=== PATIENT | female | born 1990 | race Asian ===

== ENCOUNTER 2016-07-19 11:03 | Outpatient (CLI) | payer MEDICAID ==
[~2016-07-19] VITALS: Ht 149.9 cm; Wt 61.6 kg
[2016-07-19 11:14] VITALS: BP 106/55; PULSE 82; RESP 18; Ht 149.9 cm; Wt 61.6 kg
--- NOTE | 2016-07-19 11:51 | RADRPT ---
PROCEDURE: Biophysical profile CLINICAL INDICATION: distress, large placental baker. TECHNIQUE: Color and pedroza-scale ultrasound images of an intrauterine gestation were obtained. COMPARISON: None FINDINGS: A single live intrauterine gestation is identified in cephalic position with an estimated hear t rate of 152 beats per minute. The placenta is located posteriorly and has a grade of 2. Potential placental baker that demonstrates internal blood flow is identified in the posterior aspect of the p lacenta. The cervix is obscured by head shadows. MATIAS is 12.8 cm. movement 2/2. tone 2/2. breathing movement 2/2. Qualitative AFV 2/2 Total biophysical profile 01/11 IMPRESSION: 01/11 biophysical profile. RPTAT: AA .Osmany Denny MD, Date Time Electronically viewed and signed by .Osmany Denny MD, MD on 07/19/2016 11:50 .P/
--- NOTE | 2016-07-19 17:23 | PN ---
DATE: ____ The patient is a ____ -year-old, 32 weeks ____. No complaints. The patient is doing well. All lab s, ultrasound within normal limits. The patient discharged home. Follow up with PROPERTY CONTROLLER within 2 we eks. Dictated By: LALA SOTO MD /NTS Conf#: [id number] DID#: [id number]
== END 2016-07-19 14:00 | disposition home or self-care (01) ==
LOC: OBT 11:03 → L-D 11:04 → OBT 14:00
PROVIDERS: ATTEND Obstetrics & Gynecology
DX: O43.893 Other placental disorders, third trimester (principal); O77.9 Labor and delivery complicated by fetal stress, unspecified; Z3A.32 32 weeks gestation of pregnancy
CPT/HCPCS: 76818; Z7500; G0463

== ENCOUNTER 2016-08-19 12:51 | Outpatient (CLI) | payer MEDICAID ==
[~2016-08-19] VITALS: Ht 149.9 cm; Wt 63.3 kg
[2016-08-19 13:09] VITALS: Ht 149.9 cm; Wt 63.3 kg
[2016-08-19 13:10] VITALS: BP 114/68; PULSE 19; RESP 19
[2016-08-19] MEDS ORDERED: PRENAT PO (13:12)
--- NOTE | 2016-08-19 13:49 | RADRPT ---
PROCEDURE: US OB. CLINICAL INDICATION: Spotting TECHNIQUE: Multiple sonographic images of the pelvis were obtained. The images were reviewed on a PACS workstation. COMPARISON: 07/19/2016 FINDINGS: There is a single live intrauterine . cardiac activity is identified at a rate of 15 4 beats per minute. presentation is cephalic. Placenta is posterior grade 1 to II. Biophysical profile score is as follows: Breathing 2 Movements 2 Tone 2 Fluid volume 2 Amniotic fluid index = 10.67 cm Total biophysical profile score = 8/8 IMPRESSION: Biophysical profile score = 8/8 RPTAT: HH .Lyle Sainz MD, MD Date Time Electronically viewed and signed by .Lyle Sainz MD, on 08/19/2016 13:48 .W/
--- NOTE | 2016-08-19 14:09 | TRIAGE ---
OB Triage Datetime Report Generated by CPN: 08/19/2016 14:08 Datetime: 08/19/2016 13:59 Vaginal Exam Dilatation (cms): 0.0 Effacement (%): 0 Station: -3 Exam By: YUNI,RN Vaginal Bleeding: None Cervix, Consistency: Firm Cervix, Position: Posterior Datetime: 08/19/2016 13:30 Maternal Assessment Level of Consciousness: Fully Conscious DTR's/Clonus: DTRs 1+ Headache: Denies Blurred Vision: No Respiratory Effort: Unlabored Breath Sounds, Left: Clear and Equal Breath Sounds, Right: Clear and Equal Nausea/Vomiting: Denies RUQ Epigastric Pain: Denies Facial Edema: 1+ Labor Evaluation Frequency: NONE Quality: Mild Resting Tone [place]: Relaxed Heart Rate FHR Baseline Rate: 140 Monitor Mode: External US Variability: Moderate 6-25 bpm Accelerations: 15X15 Decelerations: None Category: Category I Pain Assessment Pain Presence: None/Denies Pain Type: N/A Membrane Status: Intact Datetime: 08/19/2016 13:14 Monitor Mode: External US Datetime: 08/19/2016 13:08 Assessment Type: Triage Maternal Assessment Level of Consciousness: Fully Conscious DTR's/Clonus: DTRs 2+; No Clonus Headache: Denies Blurred Vision: No Respiratory Effort: Unlabored; Regular Rhythm; Equal Expansion Breath Sounds, Left: Clear and Equal Breath Sounds, Right: Clear and Equal Nausea/Vomiting: Denies RUQ Epigastric Pain: Denies Lower Extremities Edema: None Degree: None Upper Extremities Edema: None Degree: None Facial Edema: None Fall Risk Assessment History of Falling: (0) No Secondary Diagnosis: (0) No Ambulatory Aid: (0) Bedrest/Nurse Assist IV Therapy: (0) No Gait: (0) Normal/Bedrest/Immobile Mental Status: (0) Oriented to Own Ability Fall Score: 0 Fall Risk Score Definition: No Risk: No action required Datetime: 08/19/2016 12:50 Time of Arrival: 08/19/2016 12:50 EGA: 36.4 Arrived By: Ambulatory Arrived From: Home Chief Complaint: PT CAME IN C/O OF SPOTTING X 1 THIS AM. STATES MOVEMENT AND DENIES ANY ABD TRAUMA OR HAVING SEX Movement: Present Contractions: Denies/Absent Rupture of Membranes: Denies Vaginal Discharge: Denies Recent Sexual Intercouse: Denies Abdominal Trauma: Not Applicable Additional Patient Complaints: NONE Initial Plan: MONITOR, PLACENTA LOCATION AND BPP Datetime: 07/19/2016 13:05 Labor Evaluation Frequency: OCCAS Monitor Mode: External Duration (sec)2399: 40-60 Quality: Mild Pattern: Normal: <= 5 Contractions in 10 Minutes Resting Tone [place]: Relaxed Heart Rate FHR Baseline Rate: 135 Monitor Mode: External US FHR Baseline Changes: No Baseline Change Variability: Moderate 6-25 bpm Accelerations: 15X15 Decelerations: None Category: Category I Datetime: 07/19/2016 12:05 Labor Evaluation Frequency: OCCAS Monitor Mode: External Duration (sec)2399: 40-60 Quality: Mild Pattern: Normal: <= 5 Contractions in 10 Minutes Resting Tone [place]: Relaxed Heart Rate FHR Baseline Rate: 135 Monitor Mode: External US Variability: Moderate 6-25 bpm Accelerations: 15X15 Decelerations: None Category: Category I Datetime: 07/19/2016 11:32 Assessment Type: Admission Assessment Maternal Assessment Level of Consciousness: Fully Conscious DTR's/Clonus: DTRs 2+; No Clonus Headache: Denies Blurred Vision: No Respiratory Effort: Unlabored; Regular Rhythm; Equal Expansion Breath Sounds, Left: Clear and Equal Breath Sounds, Right: Clear and Equal Nausea/Vomiting: Denies RUQ Epigastric Pain: Denies Lower Extremities Edema: None Degree: None Upper Extremities Edema: None Degree: None Facial Edema: None Fall Risk Assessment History of Falling: (0) No Secondary Diagnosis: (0) No Ambulatory Aid: (0) Bedrest/Nurse Assist IV Therapy: (0) No Gait: (0) Normal/Bedrest/Immobile Mental Status: (0) Oriented to Own Ability Fall Score: 0 Fall Risk Score Definition: No Risk: No action required Datetime: 07/19/2016 11:31 EGA: 32.1 Datetime: 07/19/2016 11:30 Time of Arrival: 07/19/2016 11:03 Arrived By: Ambulatory Arrived From: Dr. Gutiérrez Chief Complaint: LARGE PLACENTAL TELLEZ Movement: Present Contractions: Denies/Absent Rupture of Membranes: Denies Vaginal Bleeding: None Vaginal Discharge: Denies Recent Sexual Intercouse: Denies Abdominal Trauma: Not Applicable Patient Complaints: Other Time Provider Notified: 07/19/2016 13:15 Provider Notified: DR MICHAELS Initial Plan: NST, BPP WITH MATIAS
--- NOTE | 2016-11-03 09:08 | QN ---
Documentation Comment vaginal bleeding IUP 36w SHANAE MICHAELS MD November 03, 2016 09:08
== END 2016-08-19 14:04 | disposition home or self-care (01) ==
LOC: OBT 12:51 → L-D 13:12 → OBT 14:04
PROVIDERS: ATTEND Obstetrics & Gynecology
DX: O46.93 Antepartum hemorrhage, unspecified, third trimester (principal); Z3A.36 36 weeks gestation of pregnancy
CPT/HCPCS: 76818; Z7500; G0463

== ENCOUNTER 2016-09-07 15:05 | Inpatient (IN) | payer MEDICAID ==
--- NOTE | 2016-08-19 14:31 | CONS ---
Date/Time of Note Date/Time of Note DATE: 08/19/16 TIME: 14:23 Consultation Date/Type/Reason Admit Date/Time August 19, 2016 OB triage consult Initial Consult Date This patient is a 26 years old 2 para 0 1 with EDC of September 12, 2016 which makes her 36 weeks and 4 days. She came to the OB triage area complaining of vaginal spotting last night. She denies intercourse last night or today. Her course was uncomplicated so far. One examining her, she is a young patient in no acute distress. Her ear nose throat are normal. Neck is normal no neck vein distention no thyromegaly no lymph node enlargement anywhere in her body Her chest is clear, heart normal sinus rhythm Abdomen is soft no contractions heart tone is normal with good variability occasional acceleration no deceleration . Her vital signs were normal blood pressure 114/68 pulse 103 respirations 19 and temperature 90 On pelvic examination the cervix was closed , thick and -3 station, no evidence of active bleeding Her biophysical profile was 8 out of 8 amniotic fluid index was 10.7 cm On ultrasound the placenta was posterior with no evidence of previa or low-lying 24 HR Interval Summary Constitutional: No chills, No diaphoresis, No disoriented, No febrile, No improved, No no complaints, No other, No poor po, No requiring IVF, No requiring O2 Detailed Summary Eyes: No discharge, No no complaints, No other, No pain, No redness, No visual change ENT: No bleeding, No congestion, No discharge, No dysphagia, No no complaints, No other, No pain, No sore throat Respiratory: No cough, No no complaints, No other, No pain, No pleuritic pain, No shortness of breath, No sputum, No wheezing Cardiovascular: No chest pain, No edema, No lightheadedness, No no complaints, No orthopenea, No other, No palpitations, No paroxysmal nocturnal dyspnea Gastrointestinal: other (As I mentioned on pelvic examination cervix was closed no head at -3), No blood, No constipation, No decreased appetite, No diarrhea, No flatus, No nausea, No no complaints, No pain, No passing stool, No vomiting Genitourinary: No bleeding, No discharge, No dysuria, No flank pain, No hematuria, No no complaints, No other Musculoskeletal: No back pain, No bone/joint pain, No neck pain, No no complaints, No other, No restricted range of motion, No swelling Skin: No bruising, No erythema, No laceration, No no complaints, No other, No pruritis, No rash, No skin lesions Neurologic: No confusion, No dizziness, No focal-weakness, No headache, No no complaints, No other, No seizure, No syncope Endocrine: No dry skin, No no complaints, No other, No polydypsia, No polyuria , No temp intolerance Lymphatic: No adenopathy, No lymphadema, No no complaints, No other, No tender nodes ED GORDON MD Aug 19, 2016 14:31
[~2016-09-07] VITALS: Ht 152.4 cm; Wt 64.3 kg
[~2016-09-07 15:05] MED LIST: PRENAT PO
[2016-09-07 15:15] VITALS: Ht 152.4 cm; Wt 64.3 kg
[2016-09-07 15:16] VITALS: BP 121/74; PULSE 91; RESP 18
[2016-09-07] MEDS ORDERED: IRON1TAB78 PO (15:18)
[2016-09-07] MEDS ORDERED: CALC-143 PO (15:19)
--- NOTE | 2016-09-07 16:25 | RADRPT ---
PROCEDURE: US OB. CLINICAL INDICATION: Low MATIAS , pain TECHNIQUE: Transabdominal views of the pelvis are available for review. COMPARISON: 08/19/2016 FINDINGS: There is a single intrauterine gestation in a vertex position. The heart rate is present at 159 bpm. The placenta is right lateral. The MATIAS measures 9.8 cm. RPTAT: AA IMPRESSION: Normal MATIAS. .Chidi Burris MD, MD Date Time Electronically viewed and signed by .Chidi Burris MD, on 09/07/2016 16:24 .S/
--- NOTE | 2016-09-07 16:27 | TRIAGE ---
OB Triage Datetime Report Generated by CPN: 09/07/2016 16:27 Datetime: 09/07/2016 16:18 Pain Assessment Pain Scale: 5 Pain Presence: Intermittent Pain Type: Contraction Pain Location: Abdomen Pain Relief Measures: Comfort Measures Datetime: 09/07/2016 15:58 Labor Evaluation Frequency: 3-6 Monitor Mode: External Duration (sec)2399: 60-120 Pattern: Normal: <= 5 Contractions in 10 Minutes Resting Tone [place]: Relaxed Heart Rate FHR Baseline Rate: 135 Monitor Mode: External US Variability: Moderate 6-25 bpm Accelerations: 15X15 Decelerations: None Category: Category I Datetime: 09/07/2016 15:42 Monitor Mode: External US Datetime: 09/07/2016 15:21 Assessment Type: Admission Assessment Maternal Assessment Level of Consciousness: Fully Conscious DTR's/Clonus: DTRs 2+; No Clonus Headache: Denies Blurred Vision: No Respiratory Effort: Unlabored; Regular Rhythm; Equal Expansion Breath Sounds, Left: Clear and Equal Breath Sounds, Right: Clear and Equal Nausea/Vomiting: Denies RUQ Epigastric Pain: Denies Lower Extremities Edema: None Degree: None Upper Extremities Edema: None Degree: None Facial Edema: None Fall Risk Assessment History of Falling: (0) No Secondary Diagnosis: (0) No Ambulatory Aid: (0) Bedrest/Nurse Assist IV Therapy: (0) No Gait: (0) Normal/Bedrest/Immobile Mental Status: (0) Oriented to Own Ability Fall Score: 0 Fall Risk Score Definition: No Risk: No action required Datetime: 09/07/2016 15:20 Time of Arrival: 09/07/2016 15:04 EGA: 39.2 Arrived By: Ambulatory Arrived From: Dr. Gutiérrez Chief Complaint: PT. SENT FROM CLINIC TO DO NST, MATIAS, AND MONITOR UC'S. Movement: Present Contractions: Denies/Absent Rupture of Membranes: Denies Vaginal Bleeding: None Vaginal Discharge: Denies Recent Sexual Intercouse: Denies Abdominal Trauma: Not Applicable Patient Complaints: None Time Provider Notified: 09/07/2016 16:20 Provider Notified: DR. MICHAELS Initial Plan: TOCO/ US Datetime: 09/07/2016 15:10 Resting Tone [place]: Relaxed Monitor Mode: External US Pain Presence: None/Denies Datetime: 08/19/2016 13:08 Fall Score: 0 Fall Risk Score Definition: No Risk: No action required Datetime: 08/19/2016 12:50 EGA: 36.4 Datetime: 07/19/2016 11:32 Fall Score: 0 Fall Risk Score Definition: No Risk: No action required Datetime: 07/19/2016 11:31 EGA: 32.1
[2016-09-07] MEDS ORDERED: MISOPROSTOL 200 MCG TAB PR PRN (17:00)
[2016-09-07] MEDS ORDERED: CARBOPROST 250 MCG INJ IM PRN (17:00)
[2016-09-07] MEDS ORDERED: OXYTOCIN 30 UNITS/LR 500 ML IV PRN (17:00)
[2016-09-07] MEDS ORDERED: METHYLERGONOVINE 0.2 MG INJ IM PRN (17:00)
[2016-09-07] MEDS ORDERED: IBUPROFEN 600 MG TAB PO PRN (17:00)
[2016-09-07] MEDS ORDERED: LIDOCAINE 1% (MPF) 30 ML INJ INJ PRN (17:00)
[2016-09-07] MEDS ORDERED: OXYTOCIN 30 UNITS/LR 500 ML IV SCH ×3 (17:00)
[2016-09-07] MEDS ORDERED: BUTORPHANOL 2 MG INJ IV PRN (17:00)
[2016-09-07] MEDS: LACTATED RINGER'S 1,000 ML IV SCH ×2 (17:30→23:48)
[2016-09-07 17:36] LABS: ADD SCAN DIFF NO
[2016-09-07 17:38] LABS: BASOPHILS % 0.2 % (0.0-2.0); EOSINOPHILS % 0.3 % (0.0-7.0); HEMATOCRIT 34.1 % (37.0-47.0); HEMOGLOBIN 10.3 g/dl (12.0-16.0); LYMPHOCYTES # 1.9 10^3/ul (0.8-2.9); LYMPHOCYTES % 19.1 % (15.0-51.0); MEAN CORPUSCULAR HEMOGLOBIN 21.6 pg (29.0-33.0); MEAN CORPUSCULAR HGB CONC 30.2 g/dl (32.0-37.0); MEAN CORPUSCULAR VOLUME 71.5 fl (82.0-101.0); MEAN PLATELET VOLUME 9.4 fl (7.4-10.4); MONOCYTE # 0.7 10^3/ul (0.3-0.9); MONOCYTES % 6.5 % (0.0-11.0); NEUTROPHIL # 7.2 10^3/ul (1.6-7.5); NEUTROPHILS % 72.1 % (39.0-77.0); NUCLEATED RED BLOOD CELLS% 0.3 /100WBC (0.0-0.0); PLATELET COUNT 244 10^3/UL (140-415); RED BLOOD COUNT 4.77 10^6/ul (4.20-5.40); RED CELL DISTRIBUTION WIDTH 16.3 % (11.5-14.5)
[2016-09-07 17:48] LABS: INR 0.91; PROTIME 12.3 Sec (12.2-14.2)
[2016-09-07 17:49] LABS: PARTIAL THROMBOPLASTIN TIME 26.8 Sec (25.0-35.0)
[2016-09-08] VITALS (7 sets, daily range): BP systolic 99–114; BP diastolic 56–64; PULSE 84–103; RESP 18–20
[2016-09-08] MEDS ORDERED: CITRIC ACID/NA CITRATE 30 ML CUP ONE (00:38)
[2016-09-08] MEDS ORDERED: ONDANSETRON 4 MG INJ ONE (00:38)
[2016-09-08] MEDS ORDERED: KETOROLAC 30 MG INJ IV PRN (01:00)
[2016-09-08] MEDS ORDERED: morphine 2 MG INJ IV PRN ×2 (01:00)
[2016-09-08] MEDS ORDERED: ONDANSETRON 4 MG INJ IV ONE (01:00)
[2016-09-08] MEDS ORDERED: DIPHENHYDRAMINE 50 MG INJ IV PRN ×4 (01:00→16:00)
[2016-09-08] MEDS ORDERED: FENTAnyl 2MCG/ML-ROPIV 0.2% 100 ML BAG EPI SCH (01:00)
[2016-09-08] MEDS ORDERED: PROCHLORPERAZINE 10 MG INJ IV PRN ×2 (01:00→11:30)
[2016-09-08] MEDS ORDERED: NALOXONE (0.4 MG/ML) INJ IV PRN ×2 (01:00→11:30)
[2016-09-08] MEDS ORDERED: ONDANSETRON 4 MG INJ IV PRN ×4 (01:00→16:00)
[2016-09-08] MEDS ORDERED: CITRIC ACID/NA CITRATE 30 ML CUP PO ONE (01:00)
[2016-09-08] MEDS: LACTATED RINGER'S 1,000 ML IV PRN ×2 (01:57→02:15)
[2016-09-08] MEDS ORDERED: TERBUTALINE 1 ML ONE (04:27)
[2016-09-08] MEDS: LACTATED RINGER'S 1,000 ML IV SCH ×3 (04:45→17:21)
[2016-09-08] MEDS ORDERED: AMPICILLIN 2 GM/NS (PMX) 100 ML IV ONE (07:41)
[2016-09-08] MEDS ORDERED: AMPICILLIN 2 GM/NS (PMX) 100 ML ONE (07:42)
[2016-09-08] MEDS ORDERED: ACETAMINOPHEN 325 MG TAB PO ONE (10:00)
[2016-09-08] MEDS ORDERED: CEFAZOLIN 2 GM/50 ML (PMX) 50 ML IVPB SCH ×2 (10:30→14:00)
[2016-09-08] MEDS ORDERED: LIDOCAINE 2%/EPI 30 ML INJ ONE (11:01)
[2016-09-08] MEDS ORDERED: PHENYLephrine (100 MCG/ML) 5ML SYG ONE ×4 (11:05→11:54)
[2016-09-08] MEDS ORDERED: morphine SULFATE/PF (10 MG/10 ML) INJ ONE (11:12)
[2016-09-08] MEDS ORDERED: EPHEDrine SULFATE 50 MG/5 ML SYG ONE (11:23)
[2016-09-08] MEDS ORDERED: HYDROmorphONE 1 MG/ML SYG IV PRN ×2 (11:30)
[2016-09-08] MEDS ORDERED: FENTAnyl 50 MCG/ML VIAL IV PRN (11:30)
[2016-09-08] MEDS ORDERED: MEPERIDINE 25 MG INJ IV PRN (11:30)
[2016-09-08] MEDS ORDERED: HYDROmorphONE (0.2 MG/ML) 10ML SYG IV PRN ×2 (11:30)
[2016-09-08] MEDS ORDERED: METOCLOPRAMIDE 10 MG INJ IV PRN (11:30)
--- NOTE | 2016-09-08 12:32 | HP ---
Date/Time of Note Date/Time of Note DATE: 09/08/16 TIME: 12:22 OB - History Hx of Present Free Text/Dictation 26y.o A1 at 39w2d for nst and borderlin matthew ve cervix 2cm still thick 2cm posterior admitted for augmentation with pitocin and ARM done clear allowed to continue labor and reached cervix complete lot with caput maternal fever 102 ampicillin 2gnm given continue to push , no futher descentwith labial edema fever mincrease 103 primary section was chosen to be m ode of delivery for failed descent and maternal fever Estimated Due Date: Sep 12, 2016 : 2 Para: 0 Spontaneous : 1 Therapeutic : 0 Care: Good Care Ultrasounds: Normal mid trimester US Obstetrical Complications: None Past Family/Social History * Past Medical, Surgical, Family and Obstetric Histories reviewed from chart. Blood Type: B+ Rubella: immune RPR/VDRL: Negative GBS Status: Negative HBsAG: Negative OB Admission Exam Vital Signs Vital Signs Vital Signs Date Time Temp Pulse Resp B/P Pulse Ox O2 Delivery O2 Flow Rate FiO2 09/07/16 15:16 98.5 91 18 121/74 Room Air Physical Exam HEENT: WNL Heart: Rhythm Normal Lungs: Clear, Equal Abdomen: WNL Extremities: Normal Reflexes: Normal Cervical Dilatation: 10cm Effacement: 100% Station: -1 Membranes: Ruptured Amniotic Fluid: Clear Heart Rate: 150's Accelerations: Accelerations Present Decelerations: No Decelerations Varibility: Moderate Contractions on Admission: < 5 Minutes Apart Intensity: Moderate Last 72 hours Lab Results CBC & BMP 09/07/16 17:30 OB Assessment/Plan Reason for admission: other (MATERNAL FEVER FAILED DESCENT) Other Assessment: IUP 39W3D Plan: Section SHANAE MICHAELS MD Sep 08, 2016 12:32
--- NOTE | 2016-09-08 13:16 | OPR ---
DATE OF OPERATION: 09/08/2016 PREOPERATIVE DIAGNOSIS: 39 weeks 3 days with failure to descend and maternal fever. POSTOPERATIVE DIAGNOSIS: 39 weeks 3 days with failure to descend and maternal fever. Del ivered normal male , 6 pounds 6 ounces, thick meconium-stained amniotic fluid, no foul odor, A pgar 8 and 9. OPERATION PROCEDURE: Primary low transverse section. SURGEON: Sujit Moreno MD ANESTHESIA: Epidural. ANESTHESIOLOGIST: Liborio Bradford MD ESTIMATED BLOOD LOSS: Approximately 600 mL. PROCEDURE: Under appropriate induction of epidural anesthesia, the patient was placed in the supine position. Abdominal wall was prepped and draped in usual aseptic manner. A Pfannenstiel incision was made. The incision was carried down through the subcutaneous tissue to the anterior rectus fasc ia which was incised transversely length of the incision. Fascial flap was created by blunt and sha rp dissection with tendinous attachment to rectus muscle split and peritoneal cavity was entered. L ow portion of the uterus was exposed. Bladder blade was introduced. Due to the fetus was way engag ed down and with placement assistant hands, pushed up through the vagina. The incision was way high, incision was carried down layer by layer until we reached the amniotic membrane, which was ruptured. Thick meconium-stained amniotic fluid noted. Normal male infant was born from the left occiput transverse position. Mouth and nose were cleaned and cord was clamped and [facility] Cord blood was obtained. The placenta was removed manually. Cavity was co mpletely explored after the uterus was exteriorized. There was a midline extension, which was separ ately closed up to the proper level, and then uterine incision was closed using #1 chromic catgut in continuous manner on the first layer and second layer using 0 chromic catgut in continuous manner. No bleeder was noted. Vigorous irrigation was done. There was no foul odor. Uterus was relocated into the abdominal cavity. Sponge count taken which was correct and the incisi onal site was rechecked for the bleeder, which was intact. Final sponge count correct. Parietal pe ritoneum was closed using 0 chromic catgut in continuous manner, muscle closed with 0 chromic catgut in continuous manner. Fascia closed with #1 Vicryl in continuous manner in 2 segments. Subcutaneo us tissue irrigated with water. This layer was approximated with 2-0 plain in continuous manner. S kin closed with 3-0 Monocryl in subcuticular manner. Steri-Strips applied. A pressure dressing hansel lied. Estimated blood loss approximately 600 mL. The patient withstood the procedure well and sent to the recovery room in stable condition. Dictated By: SUJIT MENA/RICO Conf#: [id number] DID#: [id number]
[2016-09-08] MEDS ORDERED: CARBOPROST 250 MCG INJ IM PRN (16:00)
[2016-09-08] MEDS ORDERED: ZOLPIDEM 5 MG TAB PO PRN (16:00)
[2016-09-08] MEDS ORDERED: OXYCODONE/ACETAMINOPHEN (5/325) TAB PO PRN ×2 (16:00)
[2016-09-08] MEDS ORDERED: OXYTOCIN 30 UNITS/LR 500 ML IV PRN (16:00)
[2016-09-08] MEDS ORDERED: LANOLIN 7 GM TUBE TOP PRN (16:00)
[2016-09-08] MEDS ORDERED: MISOPROSTOL 200 MCG TAB PR PRN (16:00)
[2016-09-08] MEDS ORDERED: METHYLERGONOVINE 0.2 MG INJ IM PRN (16:00)
[2016-09-08] MEDS: IBUPROFEN 600 MG TAB PO SCH (17:20)
[2016-09-08] MEDS: SENNA/DOCUSATE NA (8.6MG/50MG) TAB PO SCH (21:03)
[2016-09-09] MEDS: LACTATED RINGER'S 1,000 ML IV SCH ×3 (01:11→16:32)
[2016-09-09 03:35] VITALS: BP 91/54; PULSE 107; RESP 20
[2016-09-09] MEDS: KETOROLAC 30 MG INJ IV PRN ×2 (05:31→11:40)
[2016-09-09] MEDS: IBUPROFEN 600 MG TAB PO SCH ×4 (06:00→18:00)
[2016-09-09 07:15] VITALS: BP 105/55; PULSE 100; RESP 20
--- NOTE | 2016-09-09 07:15 | CONS ---
Date/Time of Note Date/Time of Note DATE: 09/09/16 TIME: 07:14 Consultation Date/Type/Reason Admit Date/Time Sep 07, 2016 at 16:20 Initial Consult Date 09/09/16 Type of Consultation: Anesthesiology Reason for Consultation Follow up 24 HR Interval Summary Free Text/Dictation Pt seen and examined at bedside is POD #1 for C/S. Pt had Duramorph neuraxial injection for post op pain management. She states she is currently doing well with no pain/N/V/D/VELASQUEZ/Numbness. Will continue to follow up PRN. Thank you. Constitutional: improved, no complaints Exam/Review of Systems Vital Signs Vitals Vital Signs Date Time Temp Pulse Resp B/P Pulse Ox O2 Delivery O2 Flow Rate FiO2 09/09/16 03:35 98.0 107 20 91/54 09/08/16 20:10 Room Air Intake and Output 09/08/16 09/08/16 09/09/16 15:00 23:00 07:00 Intake Total 3200 ml 750 ml 875 ml Output Total 1270 ml 250 ml 400 ml Balance 1930 ml 500 ml 475 ml Results Result Diagram: 09/07/16 1730 Medications Medications Current Medications Lactated Ringer's (Lr) 1,000 ml @ 125 mls/hr Q8H IV Last administered on 01:11; Admin Dose 125 MLS/HR; Start 09/07/16 at 16:32 Naloxone HCl (Narcan) 0.1 mg Q2M PRN IV FOR RESP RATE 8 OR LESS; Start 09/08/16 at 11:30; Stop 09/09/16 at 11:29 Ketorolac Tromethamine (Toradol) 30 mg Q6H PRN IV PAIN Last administered on 09/09 05:31; Admin Dose 30 MG; Start 09/08/16 at 11:30; Stop 09/09/16 at 11:29 Hydromorphone HCl (Dilaudid) 0.2 mg Q3H PRN IV PAIN LEVEL 1-5; Start 09/08/16 at 11:30; Stop 09/09/16 at 11:29 Hydromorphone HCl (Dilaudid) 0.4 mg Q3H PRN IV PAIN LEVEL 6-10; Start 09/08/16 at 11:30; Stop 09/09/16 at 11:29 Diphenhydramine HCl (Benadryl) 25 mg Q6H PRN IV ITCHING; Start 09/08/16 at 11:30 ; Stop 09/09/16 at 11:29 Ondansetron HCl (Zofran Inj) 4 mg Q6H PRN IV NAUSEA AND/OR VOMITING; Start 09/08 at 11:30; Stop 09/09/16 at 11:29 Prochlorperazine (Compazine Inj) 10 mg ONCE PRN IV NAUSEA AND/OR VOMITING; Start 09/08/16 at 11:30; Stop 09/09/16 at 11:29 Oxycodone/ Acetaminophen (Percocet (5/ 325)) 1 tab Q4H PRN PO PAIN LEVEL 4-6; Start 09/08/16 at 16:00 Oxycodone/ Acetaminophen (Percocet (5/ 325)) 2 tab Q4H PRN PO PAIN LEVEL 7-10; Start 09/08/16 at 16:00 Ibuprofen (Motrin) 600 mg Q6 PO ; Start 09/08/16 at 18:00 Simethicone (Mylicon) 160 mg Q8H PRN PO DISTENSION/GAS/BLOATING; Start 09/08/16 at 16:00 Senna/Docusate Sodium (Senokot-S) 1 tab BID PO Last administered on 09/08/16t 21 :03; Admin Dose 1 TAB; Start 09/08/16 at 21:00 Diphtheria/ Tetanus/Acell Pertussis 0.5 ml 0.5 ml ONCE ONCE IM* ; Start 09/11/16 at 09:00; Stop 09/11/16 at 09:01 Oxytocin/Lactated Ringer's 500 ml @ 0 mls/hr ONCE PRN IV For Hemorrhage Management; Start 09/08/16 at 16:00 Methylergonovine Maleate (Methergine) 0.2 mg ONCE PRN IM VAGINAL BLEEDING; Start 09/08/16 at 16:00 Carboprost Tromethamine (Hemabate) 250 mcg ONCE PRN IM VAGINAL BLEEDING; Start 09/08/16 at 16:00 Misoprostol (Cytotec) 1,000 mcg ONCE PRN IA VAGINAL BLEEDING; Start 09/08/16 at 16:00 Diphenhydramine HCl (Benadryl) 25 mg Q6H PRN IV PRURITUS; Start 09/08/16 at 16: 00 Ondansetron HCl (Zofran Inj) 4 mg Q6H PRN IV NAUSEA AND/OR VOMITING; Start 09/08 at 16:00 Zolpidem Tartrate (Ambien) 10 mg QHS PRN PO INSOMNIA; Start 09/08/16 at 16:00 DAYTON COSME Sep 09, 2016 07:15
[2016-09-09] MEDS: SENNA/DOCUSATE NA (8.6MG/50MG) TAB PO SCH ×2 (09:13→20:35)
[2016-09-09 10:12] LABS: ADD SCAN DIFF NO
[2016-09-09 10:14] LABS: HEMATOCRIT 25.1 % (37.0-47.0); HEMOGLOBIN 7.9 g/dl (12.0-16.0); MEAN CORPUSCULAR HEMOGLOBIN 22.4 pg (29.0-33.0); MEAN CORPUSCULAR HGB CONC 31.5 g/dl (32.0-37.0); MEAN CORPUSCULAR VOLUME 71.3 fl (82.0-101.0); MEAN PLATELET VOLUME 9.6 fl (7.4-10.4); PLATELET COUNT 193 10^3/UL (140-415); RED BLOOD COUNT 3.52 10^6/ul (4.20-5.40); RED CELL DISTRIBUTION WIDTH 15.6 % (11.5-14.5); WHITE BLOOD COUNT 19.8 10^3/ul (4.8-10.8)
[2016-09-09 11:25] LABS: EOSINOPHILS # 0.2 10^3/ul (0.0-0.5); LYMPHOCYTES # 1.6 10^3/ul (0.8-2.9); MONOCYTE # 1.2 10^3/ul (0.3-0.9); NEUTROPHIL # 15.6 10^3/ul (1.6-7.5)
[2016-09-09 11:46] VITALS: BP 105/59; PULSE 104; RESP 20
[2016-09-09 16:00] VITALS: BP 112/47; PULSE 100; RESP 20
[2016-09-09 19:50] VITALS: BP 119/66; PULSE 92; RESP 19
[2016-09-10] VITALS: BP 114/63; PULSE 85; RESP 20
[2016-09-10] MEDS: IBUPROFEN 600 MG TAB PO SCH ×5 (00:27→23:55)
[2016-09-10 04:00] VITALS: BP 112/61; PULSE 82; RESP 19
[2016-09-10 07:11] LABS: ADD SCAN DIFF NO
[2016-09-10 07:17] LABS: ABNORMAL IP MESSAGE 1; HEMATOCRIT 22.5 % (37.0-47.0); MEAN CORPUSCULAR HEMOGLOBIN 21.9 pg (29.0-33.0); MEAN CORPUSCULAR HGB CONC 30.7 g/dl (32.0-37.0); MEAN CORPUSCULAR VOLUME 71.4 fl (82.0-101.0); MEAN PLATELET VOLUME 9.8 fl (7.4-10.4); PLATELET COUNT 200 10^3/UL (140-415); RED BLOOD COUNT 3.15 10^6/ul (4.20-5.40); RED CELL DISTRIBUTION WIDTH 15.7 % (11.5-14.5); WHITE BLOOD COUNT 15.8 10^3/ul (4.8-10.8)
[2016-09-10 07:22] LABS: HEMOGLOBIN 6.9 g/dl (12.0-16.0)
[2016-09-10 07:30] VITALS: BP 114/70; PULSE 84; RESP 20
[2016-09-10] MEDS: SENNA/DOCUSATE NA (8.6MG/50MG) TAB PO SCH ×2 (09:45→21:00)
[2016-09-10] MEDS: FERROUS GLUCONATE (EC) 325 MG TAB PO SCH (09:45)
[2016-09-10 12:08] LABS: EOSINOPHILS # 0.2 10^3/ul (0.0-0.5); HYPOCHROMASIA 1+; LYMPHOCYTES # 1.9 10^3/ul (0.8-2.9); MICROCYTOSIS 2+; MONOCYTE # 0.5 10^3/ul (0.3-0.9); NEUTROPHIL # 12.5 10^3/ul (1.6-7.5)
--- NOTE | 2016-09-10 14:50 | PN ---
Date/Time of Note Date/Time of Note DATE: 09/10/16 TIME: 14:48 OB Subjective Subjective Subjective had b.m no significany symptoms OB Objective Objective Objective vss afebrile fundus firm lochia min calf neg for tenderness labial edema much reduced HEENT: WNL Heart: Rhythm Normal Lungs: Clear, Equal Abdomen: WNL Extremities: Normal Reflexes: Normal OB Assessment/Plan Other Assessment: s/p primary c/s Other plan: removal of chavez SHANAE MICHAELS MD Sep 10, 2016 14:50
[2016-09-10 16:10] VITALS: BP 109/62; PULSE 82; RESP 82
[2016-09-10 20:01] VITALS: BP 123/64; PULSE 78; RESP 20
[2016-09-11 04:11] VITALS: BP 120/65; PULSE 76; RESP 20
[2016-09-11] MEDS: IBUPROFEN 600 MG TAB PO SCH ×2 (06:00→12:52)
[2016-09-11 08:00] VITALS: BP 120/74; PULSE 75; RESP 18
[2016-09-11] MEDS: FERROUS GLUCONATE (EC) 325 MG TAB PO SCH (08:59)
[2016-09-11] MEDS: SENNA/DOCUSATE NA (8.6MG/50MG) TAB PO SCH (09:00)
[2016-09-11] MEDS: DIPHTH/TET/ACEL PERTUSS (ADULT) 0.5 ML VIAL IM* ONE ×2 (09:00→12:57)
--- NOTE | 2016-09-11 10:25 | PD.PPDC ---
MANAGER BIOSTATISTICS Discharge Instruction Diagnosis Final Diagnosis: s/p primary c/s Condition Patient Condition: Stable Diet Diet: Resume Regular Diet Activity/Restrictions Activity: October Shower Restrictions: No Exercising No Lifting Minimize Stair-climbing No Sexual Activity Nothing in the Vagina No [employer] No Tampons, douche Wound/Drain Care Instructions Wound/Drain Care Instructions: Wash with soap and water Keep clean and dry Follow-up Follow-up with Physician: 2, Week/Weeks Return to clinic for LAB SUPPORT TECH Instructions: Fever greater than 101 Chills Worsening abdominal pain Excessive Vaginal Bleeding More than 2 pads per hour Unable to tolerate diet OB Instructions: Breast Tenderness Depression Blurried Vision Headache Surgical Instructions: Incisional Drainage Incisional Redness SHANAE MICHAELS MD Sep 11, 2016 10:25
--- NOTE | 2016-09-11 10:30 | PD.PPDC ---
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
--- NOTE | 2016-09-11 10:42 | DS ---
Date/Time of Note Date/Time of Note DATE: 09/11/16 TIME: 10:40 Obstetrical Discharge Record Final Diagnosis Final Diagnosis: Term delivered Section Section: Primary Complications Induction: Yes Condition on Discharge Physical Assessment Last Vitals: vss afebrile fundus firm lochia min calf neg wound ok Voiding: Yes Bowel Movement: Yes Breast: Soft, non-tender Fundus: Firm Abdomen and Incision: soft wound ok Calf Tenderness: No Patient Condition: Stable SHANAE MICHAELS MD Sep 11, 2016 10:42
== END 2016-09-11 16:42 | disposition home or self-care (01) | DRG 765 ==
LOC: OBT 15:05 → L-D 15:05 → OBT 16:20 → L-D 16:20 → PP1 09-08 14:56
PROVIDERS: ADMIT Obstetrics & Gynecology; ATTEND Obstetrics & Gynecology
PROC: 10D00Z1 Extraction of Products of Conception, Low, Open Approach (ICD-10-PCS; principal; 2016-09-08 11:15)
DX: O32.4XX0 Maternal care for high head at term, not applicable or unspecified (principal); O75.2 Pyrexia during labor, not elsewhere classified; Z3A.39 39 weeks gestation of pregnancy; Z37.0 Single live birth
CPT/HCPCS: 62319; 76816; 85025; 85610; 85730; 86592; 86900; 86901; 87070; 88305; 90715; 99464; G0463; J0290; J0690; J1885; J2274; J2370; J2405; J2590; J3010; J3105; J7120